=== PATIENT | male | born 1945 | race Caucasian/White ===

== ENCOUNTER 2020-12-29 22:19 | Emergency (ER) | payer MEDICARE, BC ==
--- NOTE | 2020-12-29 22:39 | EDM.PDOC ---
ED HPI GENERAL MEDICAL PROBLEM - General Chief Complaint: Lower Extremity Injury/Pain Stated Complaint: CAN'T PUT WEIGHT ON RIGHT HIP, FELL OF LADDER Time Seen by Provider: 12/29/20 22:38 Source of Information: Reports: Patient, RN, RN Notes Reviewed History Limitations: Reports: No Limitations - History of Present Illness INITIAL COMMENTS - FREE TEXT/NARRATIVE: Andrew is a 75 y/o male who presents to the ED via personal vehicle with for complaints of right hip following a fall off of a ladder. 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 He denies loss of consciousness and remembers to event in entirety, but he is unsure if he struck his head. The patient denies history of blood thinner use or blood dyscrasias. He denies history of injury to right hip or pelvis. The patient is unable to ambulate or bear weight on the right lower extremity; dorsal/plantar flexion are intact. He denies pain to any other locations on his neck, trunk, or extremities. He has taken no medications for the pain. Right Hip Pain Score (Numeric/FACES): 5 - Related Data Allergies Allergy/AdvReac Type Severity Reaction Status Date / Time No Known Allergies Allergy Verified 12/29/20 22:33 Home Meds: Home Meds LORazepam [Ativan] 0.5 mg PO Q8HR 10/23/16 [History] PARoxetine HCl [Paxil] 40 mg PO DAILY 10/23/16 [History] Simvastatin 20 mg PO DAILY 10/23/16 [History] Calcium Carbonate [Calcium] 600 mg PO DAILY 10/24/16 [History] Loratadine [Claritin] 10 mg PO ASDIRECTED PRN 10/24/16 [History] [place]-3 Fatty Acids/Fish Oil [Fish Oil 1,200 mg Softgel] 1 cap PO DAILY 10/24/16 [History] Omeprazole 20 mg PO DAILY 10/24/16 [History] flaxseed oiL [Flaxseed Oil] 1,000 mg PO DAILY 10/24/16 [History] Social & Family History - Tobacco Use Tobacco Use Status *Q: Never Tobacco User - Caffeine Use Caffeine Use: Reports: None - Recreational Drug Use Recreational Drug Use: No Review of Systems - Review of Systems Review Of Systems: Comprehensive ROS is negative, except as noted in HPI. ED EXAM, GENERAL - Physical Exam Exam: See Below Exam Limited By: No Limitations General Appearance: Alert, Mild Distress (Right hip pain) Eye Exam: Bilateral Eye: EOMI, Normal Inspection, PERRL (3mm) Ears: Normal External Exam, Normal Canal, Hearing Grossly Normal, Normal TMs Ear Exam: Bilateral Ear: Auricle Normal, Canal Normal, TM normal Nose: Normal Inspection, Normal Mucosa, No Blood Throat/Mouth: Normal Inspection, Normal Oropharynx, Normal Voice, No Airway Compromise Head: Normocephalic, Other (Superficial redness to right forehead, no hematoma present) Neck: Normal Inspection, Supple, Non-Tender, Full Range of Motion, Other (Negative NEXUS criteria). No: Tender Lateral, Tender Midline Respiratory/Chest: No Respiratory Distress, Lungs Clear, Normal Breath Sounds, No Accessory Muscle Use, Chest Non-Tender Cardiovascular: Normal Peripheral Pulses, Regular Rate, Rhythm, No Edema, No Gallop, No JVD, No Murmur, No Rub Peripheral Pulses: 2+: Radial (L), Radial (R) GI/Abdominal: Normal Bowel Sounds, Soft, Non-Tender, No Distention, No Abnormal Bruit, No Mass, Pelvis Stable (Male) Exam: Deferred Rectal (Males) Exam: Deferred Back Exam: No: Muscle Spasm, Paraspinal Tenderness, Vertebral Tenderness Extremities: No Pedal Edema, Normal Capillary Refill, Leg Pain (To right lateral hip as well as palpation of right inferior buttock and right anterior groin), Limited Range of Motion. No: Joint Swelling, Increased Warmth, Mottled, Pallor, Redness Neurological: Alert, Oriented, CN II-XII Intact, Normal Cognition, No Motor/Sensory Deficits, Abnormal Gait (Unable to bear weight on right extremity) Psychiatric: Normal Affect, Normal Mood Skin Exam: Warm, Dry, Intact, Normal Color, No Rash. No: Cyanosis, Ecchymosis, Erythema, Jaundice, Mottled, Pallor, Petechiae Lymphatic: No Adenopathy Course - Vital Signs Last Recorded V/S: Last Vital Signs Temp 97.8 F 12/30/20 00:33 Pulse 96 12/30/20 00:33 Resp 18 12/30/20 00:33 BP 137/86 12/30/20 00:33 Pulse Ox 95 12/30/20 00:33 - Orders/Labs/Meds Labs: Laboratory Tests 12/30/20 Range/Units 01:10 SARS-CoV-2 RNA (TREVOR) Negative (NEGATIVE) Meds: Medications Discontinued Medications Generic Name Dose Route Start Last Admin Trade Name Tim PRN Reason Stop Dose Admin Hydromorphone HCl 1 mg 12/29/20 23:59 12/30/20 00:34 Hydromorphone 1 Mg/Ml Syringe IVPUSH 12/30/20 00:00 1 mg ONETIME ONE Administration Ondansetron HCl 4 mg 12/29/20 23:59 12/30/20 00:32 Ondansetron 4 Mg/2 Ml Sdv IVPUSH 12/30/20 00:00 4 mg ONETIME ONE Administration - Radiology Interpretation Free Text/Narrative:: [facility] Final Radiology Report Call: [phone] assistance Online chat: [email or web address] Name: ANDREW OROZCO Age: 75Years M Date: 12/29/2020 SSN: -- : [id number] Study: CR HIP MIN 2V OR 3V W PELVIS RT Requesting Physician: Ana Dumont Images: 3 Addl Studies: Provided Clinical History: Fall off of ladder approximately 4 feet, right hip pain Contrast: Contrast Medium: Contrast Amount: Contrast Method: CONFIDENTIALITY STATEMENT This report is intended only for use by the referring physician, and only in accordance with law. If you received this in error, call [phone]. Page 1 of 1 PROCEDURE INFORMATION: Exam: XR Right Hip Exam date and time: 12/29/2020 11:12 PM Age: 75 years old Clinical indication: Injury or trauma; Fall; Blunt trauma (contusions or hematomas); Right; Hip; Additional info: Fall off of ladder approximately 4 feet, right hip pain TECHNIQUE: Imaging protocol: XR Right hip. Views: 2 or 3 views hip with pelvis when performed. COMPARISON: No relevant prior studies available. FINDINGS: Bones/joints: There is a subcapital right hip fracture with mild varus deformity. Soft tissues: Unremarkable. IMPRESSION: Closed fracture of the right hip as above. Thank you for allowing us to participate in the care of your patient. Dictated and Authenticated by: Graeme Davalos MD 12/29/2020 11:47 PM Central Time ([place] & [place]) [facility] Final Radiology Report Call: [phone] assistance Online chat: [email or web address] Name: ANDREW OROZCO Age: 75Years M Date: 12/29/2020 SSN: -- : 1945 Study: CT HEAD WO CONT Requesting Physician: Ana Dumont Images: 144 Addl Studies: Provided Clinical History: Fall from ladder (about 4 feet), unsure if struck right forehead Contrast: Without Contrast Medium: Contrast Amount: Contrast Method: Page 1 of 2 PROCEDURE INFORMATION: Exam: CT Head Without Contrast Exam date and time: 12/29/2020 11:05 PM Age: 75 years old Clinical indication: Injury or trauma; Fall; Blunt trauma (contusions or hematomas); Without loss of consciousness; Additional info: Fall from ladder (about 4 feet), unsure if struck right forehead TECHNIQUE: Imaging protocol: Computed tomography of the head without contrast. Radiation optimization: All CT scans at this facility use at least one of these dose optimization techniques: automated exposure control; mA and/or kV adjustment per patient size (includes targeted exams where dose is matched to clinical indication); or iterative reconstruction. COMPARISON: No relevant prior studies available. FINDINGS: Brain: There are periventricular hypodensities suggestive of small vessel disease. No acute infarct or hemorrhage. 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 Cerebral ventricles: No ventriculomegaly. Paranasal sinuses: Visualized sinuses are unremarkable. No fluid levels. Mastoid air cells: Visualized mastoid air cells are well aerated. Bones/joints: Unremarkable. No acute fracture. Soft tissues: Unremarkable. IMPRESSION: No acute change is identified. Thank you for allowing us to participate in the care of your patient. Dictated and Authenticated by: Graeme Davalos MD 12/29/2020 11:44 PM Central Time ([place] & [place]) - Re-Assessments/Exams Free Text/Narrative Re-Assessment/Exam: 12/30/[address] obtained. Xray of right hip and pelvis obtained. Dilaudid 1mg IVP and Zofran 4mg IVP administered. Case discussed with Luciano, [facility], and [facility], all currently unable to accept patient given bed status. Case discussed with Dr. Guevara, [facility], who kindly accepted patient for transfer. Findings of examination, imaging, and discussion with Dr. Guevara reviewed with patient and . Patient verbalized understanding and agreement with the plan of care. Departure - Departure Time of Disposition: 00:32 Disposition: DC/Tfer to [facility] 02 Condition: Fair Clinical Impression: Subcapital fracture of right hip Qualifiers: Encounter type: initial encounter Fracture type: closed Qualified Code(s): S72.011A - Unspecified intracapsular fracture of right femur, initial encounter for closed fracture Fall from ladder Qualifiers: Encounter type: initial encounter Qualified Code(s): W11.XXXA - Fall on and from ladder, initial encounter - Discharge Information Referrals: PCP,None [Primary Care Provider] - Forms: ED Department Discharge, Interfacility Transfer [facility]
--- NOTE | 2020-12-29 23:45 | CT ---
PROCEDURE INFORMATION: Exam: CT Head Without Contrast Exam date and time: 12/29/2020 11:05 PM Age: 75 years old Clinical indication: Injury or trauma; Fall; Blunt trauma (contusions or hematomas); Without loss of consciousness; Additional info: Fall from ladder (about 4 feet), unsure if struck right forehead TECHNIQUE: Imaging protocol: Computed tomography of the head without contrast. Radiation optimization: All CT scans at this facility use at least one of these dose optimization techniques: automated exposure control; mA and/or kV adjustment per patient size (includes targeted exams where dose is matched to clinical indication); or iterative reconstruction. COMPARISON: No relevant prior studies available. FINDINGS: Brain: There are periventricular hypodensities suggestive of small vessel disease. No acute infarct or hemorrhage. 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 Cerebral ventricles: No ventriculomegaly. Paranasal sinuses: Visualized sinuses are unremarkable. No fluid levels. Mastoid air cells: Visualized mastoid air cells are well aerated. Bones/joints: Unremarkable. No acute fracture. Soft tissues: Unremarkable. IMPRESSION: No acute change is identified.
--- NOTE | 2020-12-29 23:47 | CR ---
PROCEDURE INFORMATION: Exam: XR Right Hip Exam date and time: 12/29/2020 11:12 PM Age: 75 years old Clinical indication: Injury or trauma; Fall; Blunt trauma (contusions or hematomas); Right; Hip; Additional info: Fall off of ladder approximately 4 feet, right hip pain TECHNIQUE: Imaging protocol: XR Right hip. Views: 2 or 3 views hip with pelvis when performed. COMPARISON: No relevant prior studies available. FINDINGS: Bones/joints: There is a subcapital right hip fracture with mild varus deformity. Soft tissues: Unremarkable. IMPRESSION: Closed fracture of the right hip as above.
[2020-12-29] MEDS ORDERED: HYDROmorphone 1 MG/ML Syringe IVPUSH ONE (23:59)
[2020-12-29] MEDS ORDERED: Ondansetron 4 MG/2 ML SDV IVPUSH ONE (23:59)
== END 2020-12-30 01:15 ==
LOC: DL.ED 22:19
DX: S72.011A Unspecified intracapsular fracture of right femur, initial encounter for closed fracture (principal); Z79.899 Other long term (current) drug therapy; W11.XXXA Fall on and from ladder, initial encounter; Z20.822 Contact with and (suspected) exposure to COVID-19
CPT/HCPCS: 70450; 73502; 96374; 96375; 99284; 99285; J1170; J2405; U0002

== ENCOUNTER 2021-12-20 05:23 | Day surgery (SDC) | payer MEDICARE, BC ==
[~2021-12-20 05:23] MED LIST: Sodium Chloride 0.9% 10 ML Syringe FLUSH SCH
[2021-12-20] MEDS ORDERED: Glycopyrrolate 0.2 MG/ML 2 ML SDV IV ONE (05:24)
[2021-12-20] MEDS ORDERED: fentaNYL 100 MCG/2 ML SDV IV ONE (05:24)
[2021-12-20] MEDS ORDERED: Midazolam 1 MG/ML 2 ML SDV IV ONE (05:24)
[2021-12-20] MEDS ORDERED: Sodium Chloride 0.9% 10 ML Syringe FLUSH PRN (06:00)
[2021-12-20] MEDS ORDERED: Dextrose 5%-0.45% NaCl 1,000 ML IV SCH (06:00)
== END 2021-12-20 08:50 | disposition home or self-care (01) ==
LOC: DL.ENDO 05:23
PROVIDERS: ATTEND Internal Medicine Gastroenterology
DX: K22.10 Ulcer of esophagus without bleeding (principal); D50.9 Iron deficiency anemia, unspecified; K21.9 Gastro-esophageal reflux disease without esophagitis; K44.9 Diaphragmatic hernia without obstruction or gangrene; K31.7 Polyp of stomach and duodenum; J44.9 Chronic obstructive pulmonary disease, unspecified; E78.5 Hyperlipidemia, unspecified; F41.1 Generalized anxiety disorder; G47.30 Sleep apnea, unspecified; J45.909 Unspecified asthma, uncomplicated; I25.10 Atherosclerotic heart disease of native coronary artery without angina pectoris; Z98.890 Other specified postprocedural states; Z79.899 Other long term (current) drug therapy
CPT/HCPCS: 00731; 43239; 87077; J2250; J3010; J3490; J7042; 88104; 88305

== ENCOUNTER 2021-12-21 19:14 | Emergency (ER) | payer MEDICARE, BC ==
[2021-12-21 20:25] LABS: ANION GAP 15.8 mEq/L (7-13)
== END 2021-12-21 21:44 | disposition home or self-care (01) ==
LOC: DL.ED 19:14
DX: R07.89 Other chest pain (principal); R20.0 Anesthesia of skin; R39.11 Hesitancy of micturition; I48.91 Unspecified atrial fibrillation; J44.9 Chronic obstructive pulmonary disease, unspecified; K21.9 Gastro-esophageal reflux disease without esophagitis; Z79.82 Long term (current) use of aspirin; Z79.899 Other long term (current) drug therapy
CPT/HCPCS: 36415; 70450; 80053; 81001; 83605; 84484; 85025; 87040; 87086; 93005; 93010; 99284; 99285

== ENCOUNTER 2023-02-25 15:44 | Emergency (ER) | payer MEDICARE, BC ==
[2023-02-25 17:20] LABS: APPEARANCE,URINE SLIGHTLY CLOUDY (CLEAR); BILIRUBIN,URINE NEGATIVE (NEGATIVE); COLOR,URINE YELLOW (YELLOW); GLUCOSE,URINE NEGATIVE (NEGATIVE); KETONES,URINE NEGATIVE (NEGATIVE); LEUKOCYTE ESTERASE,URINE LARGE (NEGATIVE); NITRITE,URINE POSITIVE (NEGATIVE); OCCULT BLOOD,URINE LARGE (NEGATIVE); PROTEIN,URINE 100 (NEGATIVE); UROBILINOGEN,URINE 0.2 mg/dL (0.2-1.0)
[2023-02-25 17:35] LABS: BACTERIA,URINE MANY /HPF (0-FEW/HPF); EPITHELIAL CELLS,URINE FEW /HPF (NOT SEEN); MUCUS,URINE FEW /LPF (NOT SEEN); RBC,URINE >100 /HPF (0-5); WBC,URINE 75-100 /HPF (0-5/HPF)
== END 2023-02-25 17:50 | disposition home or self-care (01) ==
LOC: DL.ED 15:44
DX: T83.511A Infection and inflammatory reaction due to indwelling urethral catheter, initial encounter (principal); R31.0 Gross hematuria; N39.0 Urinary tract infection, site not specified; I48.91 Unspecified atrial fibrillation; J45.909 Unspecified asthma, uncomplicated; J44.9 Chronic obstructive pulmonary disease, unspecified; K21.9 Gastro-esophageal reflux disease without esophagitis
CPT/HCPCS: 81001; 87086; 87088; 87186; 99283